=== PATIENT | male | born 1970 | race Caucasian/White ===

== ENCOUNTER 2022-09-05 05:57 | Day surgery (SDC) | payer OTHER ==
[~2022-09-05] VITALS: Ht 180.3 cm; Wt 77.1 kg
[~2022-09-05 05:57] MED LIST: NORCO 7.5-3251 EACH PO
--- NOTE | 2022-09-05 08:19 | NUR ---
09/05/22 0819 Jessika Seals 0814 PATIENT RESTING WITH EYES CLOSED. AWAKENS WITH VERBAL STIMULI. REPOSITIONS SELF TO BACK. HEARING AIDS GIVEN.RESP EVEN AND UNLABORED, NC AT 2 LITERS TURNED OFF ON ARRIVAL TO PACU.
--- NOTE | 2022-09-07 13:32 | OR ---
[facility] [address], [place] [address] Signed DATE OF OPERATION: 09/05/2022 SURGEON: Christiano Ann MD PREOPERATIVE DIAGNOSES: 1. History of sczrpzi-gw-lso, clinically resolved, episodically problematic. 2. Known protruding hemorrhoid. POSTOPERATIVE DIAGNOSIS: Normal-appearing colon except for grade 3 hemorrhoids; no evidence of active pizggfk-sm-cxq. PROCEDURE: Total colonoscopy to cecum with biopsy of cecum and rectum. ANESTHESIA: Intravenous sedation; fentanyl 100 mcg and Versed 9 mg. INDICATIONS: This 52-year-old white man is a prisoner at [facility] and was evaluated in 2020 with perianal issues of episodic leakage of blood and swelling in the left perianal area. An ultrasound showed findings suggestive of possible fistulous tract. Resolution clinically has been noted, though the patient does describe episodic drainage. The patient never had a perirectal abscess to account for a zrpvxzb-ug-fle notably. He has no family history of inflammatory bowel disease. He has not had colonoscopy in the past. He is admitted to undergo colonoscopy at this time to assess for possible inflammatory bowel disease that may have accounted for spontaneous fistula in [place] as well as to assess for polyps, cancer, and so on. He is known to have protruding hemorrhoid that is problematic sometimes as well. He understands the risks of bleeding, infection, and perforation and wished to proceed. FINDINGS: The prep was excellent. Complete colonoscopy was undertaken to the cecum. Biopsies taken of the cecum and rectum to assess for occult colitis. Prostate was normal. I saw no evidence of cquxwad-lc-ovu active or quiescent at this time. There is no evidence of polyps, diverticular formation, or colitis either. DESCRIPTION OF PROCEDURE: The patient was brought to the endoscopy suite and placed in lateral decubitus position given intravenous sedation to the point of slurred speech and nystagmus with full Electronically Signed By: CHRISTIANO ANN MD 09/07/22 1342 PATIENT NAME: JACKIE PARK OPERATIVE REPORT DATE OF : 72 REPORT #: [id number] PHYSICIAN: CHRISTIANO ANN MD PCP: SANDRA MEDINA MD REPORT IS CONFIDENTIAL AND NOT TO BE RELEASED WITHOUT AUTHORIZATION [facility] [address], [place] [address] Signed cardiopulmonary monitoring. Digital rectal examination showed no abnormality, specifically no perianal ztxjcdo-pq-zmh or actual mass at this time. This is contrary to his previous examination on August 26, 2021. Prostate was palpated and both lobes were firm, but small and symmetric. An Olympus video colonoscope was passed into the rectum and manipulated throughout the colon ultimately intubating the cecum itself. The ileocecal valve and appendiceal orifice were normal. Biopsies were taken of the cecum to rule out occult colitis. The scope was withdrawn and careful examination upon withdrawal of scope showed no specific abnormalities. The biopsy was taken of the rectum after retroflexed view to rule out occult colitis. He did have what appeared to be a hemorrhoid located in the left lateral wall. The scope was straightened, withdrawn, and removed showing no evidence of fissure or fistula. Re-examination of perianal area showed no finding of exgnhzj-ga-dnm at this time, no sign of cellulitis and really no specific mass at this point. The scope was removed, and the patient was taken to the recovery room in good condition. CONCLUDING DIAGNOSIS: No sign of active ycfpinm-ki-ygu at this time. No evidence of colitis or cancer or polyps. PLAN: Recommend repeat colonoscopy in 10 years. If recurrent pain and perianal drainage should occur, we would see back and consider for appropriate management. If bothered by internal hemorrhoid, which apparently protrudes and requires reduction could consider for hemorrhoidectomy. We will plan to see him in my next correction clinic and review these findings including the pathology report from biopsies. MD BUBBA Nielsen/TRAEL /[id number] cc: Sandee Wade [facility] Electronically Signed By: CHRISTIANO ANN MD 09/07/22 1332 PATIENT NAME: JACKIE PARK OPERATIVE REPORT DATE OF : 72 REPORT #: [id number] PHYSICIAN: CHRISTIANO ANN MD PCP: SANDRA MEDINA MD REPORT IS CONFIDENTIAL AND NOT TO BE RELEASED WITHOUT AUTHORIZATION [facility] [address], [place] [address] Signed Copies: ~ Electronically Signed By: CHRISTIANO ANN MD 09/07/22 1332 PATIENT NAME: JACKIE PARK OPERATIVE REPORT DATE OF : 72 REPORT #: [id number] PHYSICIAN: CHRISTIANO ANN MD PCP: SANDRA MEDINA MD REPORT IS CONFIDENTIAL AND NOT TO BE RELEASED WITHOUT AUTHORIZATION
--- NOTE | 2022-09-10 11:30 | PATH ---
[facility] [address] [facility] [place] [place] [address] Signed SPECIMEN(S): A CECUM BIOPSY SPECIMEN(S): B RECTUM BIOPSY SPECIMEN SOURCE: A. CECUM BIOPSY B. RECTUM BIOPSY CLINICAL HISTORY: Screening colonoscopy. Postop: Normal colon. FINAL PATHOLOGIC DIAGNOSIS: A. Cecum biopsy: - Benign colonic mucosa, negative for dysplasia or pathologic inflammation. B. Rectum, biopsy: - Benign colonic mucosa with slight hyperplastic features (one fragment). JVR:[facility]:C2NR MICROSCOPIC EXAMINATION: Histologic sections of all submitted blocks are examined by light microscopy. These findings, together with the gross examination, support the pathologic diagnosis. GROSS DESCRIPTION: Two specimens are received in two containers, labeled "ES." A. The specimen, labeled "ES, cecum biopsy," is received in formalin and consists of two horan soft tissue fragments that measure 0.2-0.3 cm in greatest dimension. The specimen is entirely submitted in cassette (A1). B. The specimen, labeled "ES, rectum biopsies," is received in formalin and consists of one horan soft tissue fragment that measures 0.3 cm in greatest dimension. The specimen is entirely submitted in cassette (B1). VB (under the direct supervision of a pathologist) The Gross Description was prepared using a voice recognition system. The report was reviewed for accuracy; however, sound-alike word errors, addition and/or deletions may occur. If there is any question about this report, please contact Client Services. PERFORMING LABORATORY: The technical component was performed by [employer], [address] [place] [id number] (CLIA# [id number]). Professional interpretation was PATIENT NAME: JACKIE PARK PATHOLOGY DATE OF : 72 REPORT #: [id number] PHYSICIAN: [facility] PCP: SANDRA MEDINA MD REPORT IS CONFIDENTIAL AND NOT TO BE RELEASED WITHOUT AUTHORIZATION [facility] [address] [place], [place] [address] Signed performed by [facility] [address] [place] [address] (CLIA#: [id number]). Diagnostician: Saúl Weiner MD Pathologist Electronically Signed 09/10/2022 Copies: ~ PATIENT NAME: JACKIE PARK PATHOLOGY DATE OF : 72 REPORT #: [id number] PHYSICIAN: [facility] PCP: SANDRA MEDINA MD REPORT IS CONFIDENTIAL AND NOT TO BE RELEASED WITHOUT AUTHORIZATION
== END 2022-09-05 08:45 | disposition home or self-care (01) ==
LOC: DS 05:57 → OPS 05:57
PROVIDERS: ATTEND Surgery
PROC: 0DBP8ZX Excision of Rectum, Via Natural or Artificial Opening Endoscopic, Diagnostic (ICD-10-PCS; 2022-09-05)
PROC: 0DBH8ZX Excision of Cecum, Via Natural or Artificial Opening Endoscopic, Diagnostic (ICD-10-PCS; principal; 2022-09-05 07:30)
DX: Z12.11 Encounter for screening for malignant neoplasm of colon (principal); K64.2 Third degree hemorrhoids; K61.0 Anal abscess
CPT/HCPCS: 99153; G0500; J2250; J3010; J7121

== ENCOUNTER 2023-04-09 07:55 | Day surgery (SDC) | payer OTHER ==
[~2023-04-09] VITALS: Ht 180.3 cm; Wt 83.6 kg
[2023-04-09 08:21] VITALS: BP 118/80
--- NOTE | 2023-04-09 10:25 | NUR ---
04/09/23 1025 Charley Rogers 1014- PT ARRIVES TO PACU, SEMI PATTEN POSITION, DROWSY BUT ANSWERING QUESTIONS. VITAL SIGNS STABLE, CONTINUE TO MONITOR. LR TKO, DRESSING IN PLACE.
[2023-04-09] MEDS ORDERED: ACETAMINOPHEN500 MG PO (10:33)
[2023-04-09] MEDS ORDERED: IBUPROFEN600 MG PO (10:33)
[2023-04-09] MEDS ORDERED: HYDROCODON-ACE1 EA10 PO (10:33)
[2023-04-09 10:45] VITALS: BP 113/79
[2023-04-09 10:48] VITALS: BP 115/77
--- NOTE | 2023-04-09 11:18 | NUR ---
1042: PATIENT BACK IN DAY SURGERY ROOM FROM PACU. DENIES PAIN. PERIPAD IN PLACE WITH SMALL AMOUNT OF SEROSANGUINOUS DRAINAGE. VS CHECKED. PATIENT ASSISTED TO SIT ON SIDE OF BED. STAND BY ASSIST WHILE PATIENT STOOD AND WALKED AROUND ROOM. GAIT STEADY. GUARDS ASSISTING PATIENT TO GET DRESSED. 1101: PATIENT DRESSED. DISCHARGE INSTRUCTIONS GIVEN TO PATIENT. IV DC'D WNL. TIP INTACT. DRESSING APPLIED. DISCHARGE INSTRUCTIONS, PINK SHEET, AND PRESCRIPTION PLACED IN ENVELOPE AND GIVEN TO GUARD. PATIENT DISCHARGED BACK TO [facility] WITH GUARDS VIA WHEELCHAIR. 1105: REPORT CALLED TO [facility].
--- NOTE | 2023-04-09 18:01 | OR ---
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 POSTOP DIAGNOSIS: Chronic left anterolateral recurrent, chronic xblazds-ee-dwq, submuscular (superficial). PROCEDURES: 1. Exam under anesthesia. 2. Anal fistulotomy. ANESTHESIA: Saddle block Mike Roque, [employer] and local 10 mL of 0.25% Marcaine with epinephrine. INDICATIONS FOR THE PROCEDURE: This 52-year-old white man is a prisoner at [facility] and well known to me from the past. He underwent colonoscopy in November of 2022 showing no evidence of inflammatory bowel disease. 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 He was originally noted to have zoixqmj-vr-rwx in 2019 and has had episodic resolution of the fistula with recurrence (as would be predicted). In the past several weeks, he has had minimal if any drainage as has been his habit previously. He is now here to undergo anal fistulotomy and other indicated procedures. He understands the risk of bleeding, infection, recurrent disease, variable degrees of incontinence and so on and wished to proceed. FINDINGS: The external tract was at least 5 cm from the anal verge proper. It had largely healed over. Lacrimal duct probe allowed for identification of the fistulous tract, however, and it was noted to be relatively superficial just beneath the superficial muscle layer of the anal sphincter complex, but not deep around the internal-external sphincter proper. The trach was laid wide open and the site cauterized and curetted. A staged approach was not required in this case. DESCRIPTION OF PROCEDURE: The patient was brought to the operating room, given a saddle block anesthetic and placed in prone randy-knife position. The buttocks were taped apart. The perianal area was clipped and prepared with a Betadine based solution. In the anterolateral aspect at Electronically Signed By: CHRISTIANO ANN MD 04/09/23 1801 PATIENT NAME: JACKIE PARK OPERATIVE REPORT DATE OF : 72 REPORT #: [id number] PHYSICIAN: CHRISTIANO ANN MD PCP: SANDRA MEDINA MD REPORT IS CONFIDENTIAL AND NOT TO BE RELEASED WITHOUT AUTHORIZATION [facility] [address], [place] [address] Signed the 7 o'clock position on the left side, the area of fistulous opening had essentially sealed over. A cord-like consistency was noted emanating towards the anal canal, however. The area was probed with anal fistula duct probed and the fistulous tract identified. The duct probe was insinuated along the tract, ultimately penetrating into the crypt located approximately 7 o'clock in the anal canal. The site appeared relatively superficial. The skin was incised with electrocautery along the probe, lying the fistulous tract wide open. It appeared to go into the superficial muscle layer, but not deep beyond the internal and external complex. It was laid wide open with good preservation of intrinsic muscle of the anal sphincter. The bed was cauterized and then curetted. A 10 mL of 0.25% Marcaine with epinephrine was injected locally. A peripad was applied. Blood loss was quite minimal. The patient was ultimately returned to the supine position and taken to the recovery room in good condition, having suffered no complications. MD BUBBA Nielsen/MODL /[id number] cc: ZAIRE Barrientos Copies: CINDY SPENCE ~ Electronically Signed By: CHRISTIANO ANN MD 04/09/23 1801 PATIENT NAME: JACKIE PARK OPERATIVE REPORT DATE OF : 72 REPORT #: [id number] PHYSICIAN: CHRISTIANO ANN MD PCP: SANDRA MEDINA MD REPORT IS CONFIDENTIAL AND NOT TO BE RELEASED WITHOUT AUTHORIZATION
== END 2023-04-09 11:01 | disposition home or self-care (01) ==
LOC: DS 07:55
PROVIDERS: ATTEND Surgery
PROC: 0H89XZZ Division of Perineum Skin, External Approach (ICD-10-PCS; principal; 2023-04-09 09:00)
DX: K60.5 Anorectal fistula (principal)
CPT/HCPCS: 00902; 36415; 80053; 85025; J0690; J1644; J2001; J2250; J2704; J3010; J7121